=== PATIENT | male | born 1955 | race Caucasian/White ===

== ENCOUNTER 2019-05-12 12:02 | Emergency (ER) | payer SELFPAY ==
[~2019-05-12] VITALS: Ht 175.3 cm; Wt 76.0 kg
[2019-05-12 13:12] LABS: HEMATOCRIT 35.4 % (39.0-50.0); HEMOGLOBIN 12.4 g/dl (14.0-18.0); MEAN CELL VOLUME 96.7 fL CALC (80.0-100.0); MEAN CORPUSCULAR HGB 33.9 pG CALC (26.0-32.0); NEUT# 7.25 thou/uL (1.82-7.42); RED BLOOD COUNT 3.66 mill/uL (4.70-6.10); RED CELL DISTRI WIDTH 12.5 % (11.5-15.5); URINE BILIRUBIN - DIPSTICK NEGATIVE (NEGATIVE); URINE BLOOD DIPSTICK NEGATIVE (NEGATIVE); URINE COLOR YELLOW; URINE GLUCOSE - DIPSTICK NEGATIVE (NEGATIVE); URINE KETONE NEGATIVE (NEGATIVE); URINE LEUK ESTERASE NEGATIVE (NEGATIVE); URINE NITRITE - DIPSTICK NEGATIVE (Negative); URINE PH 5.5 (4.5-8.0); URINE PROTEIN - DIPSTICK NEGATIVE (NEG-TRACE); URINE SPECIFIC GRAVITY <=1.005; URINE UROBILINOGEN - DIPSTICK 0.2 E.U./dL (0.2)
[2019-05-12 13:15] LABS: ALBUMIN 3.5 g/dL (3.2-5.0); ALKALINE PHOSPHATASE 91 u/l (38-126); ANION GAP 15 (6-22 (CALC)); BILIRUBIN, TOTAL 0.7 mg/dL (0.0-1.4); BUN 3 mg/dL (8-23); BUN/CREATININE RATIO 4 (12-20 (CALC)); CARBON DIOXIDE 21 mmol/l (22-30); CHLORIDE 95 mmol/l (95-108); CREATININE 0.6 mg/dL (0.7-1.3); GFR > 60 ML/MIN (>=60 (CALC)); GFR FOR AFR.AMER. > 60 ML/MIN (>=60 (CALC)); SGOT/AST 82 u/l (19-48); SODIUM 127 mmol/l (137-146); TOTAL PROTEIN 7.6 g/dL (6.3-8.2)
[2019-05-12] MEDS ORDERED: CEPHALEXIN500 M1 PO (13:47)
[2019-05-12 14:12] VITALS: BP 164/81
[2019-05-12] MEDS ORDERED: MUPIROCIN2 % EX (14:16)
== END 2019-05-12 14:19 | disposition home or self-care (01) | DRG 603 ==
LOC: ED 12:02
PROVIDERS: Family Medicine
DX: L03.116 Cellulitis of left lower limb (principal); L03.113 Cellulitis of right upper limb; L03.115 Cellulitis of right lower limb; F17.210 Nicotine dependence, cigarettes, uncomplicated